=== PATIENT | male | born 1990 | race Hispanic/Latino ===

== ENCOUNTER 2019-03-10 16:28 | Emergency (ER) | payer MEDICAID, OTHER | END 2019-03-10 17:53 | disposition home or self-care (01) | LOC: EDH 16:28 | DX: G89.18 Other acute postprocedural pain (principal); M79.602 Pain in left arm; Z88.5 Allergy status to narcotic agent; Z88.0 Allergy status to penicillin; Z72.0 Tobacco use | CPT/HCPCS: 99281 ==